=== PATIENT | male | born 1955 | race Caucasian/White ===

== ENCOUNTER 2020-08-12 13:57 | Inpatient (IN) | payer MEDICARE, OTHER ==
[~2020-08-12] VITALS: Ht 172.7 cm; Wt 85.7 kg
--- NOTE | 2020-08-12 14:16 | NUR ---
SHARON FROM [facility]. SENT BY DR. HANDLEY. TO ER BED 6. AAOX4. NO TIN RESP DISTRESS. BROUGHT IN FOR NECK PAIN THAT HAS BEEN GOING ON THE THE PAST 2 DAYS. PER PT, HE WAKE UP WITH HIS NECK HURTING WHICH IS AGGREVATED BY TILTING HIS HEAD. ROM ARE INTACT. AWAITING MD FOR EVAL.
--- NOTE | 2020-08-12 14:19 | NUR ---
AT BEDSIDE FOR EVAL.
[2020-08-12] MEDS ORDERED: MORPHINE SULFATE INJ 4 MG/ML DISP.SYRIN ONE (14:27)
[2020-08-12] MEDS ORDERED: ONDANSETRON HCL/PF 4 MG/2 ML VIAL ONE (14:27)
[2020-08-12] MEDS ORDERED: MORPHINE SULFATE INJ 2 MG/ML DISP.SYRIN IV ONE (14:30)
[2020-08-12] MEDS ORDERED: ONDANSETRON HCL/PF 4 MG/2 ML VIAL IVP ONE (14:30)
[2020-08-12 14:52] LABS: BASOPHILS # (AUTO) 0.1 /CMM (0.0-0.2); BASOPHILS % (AUTO) 1.1 % (0.0-2.0); HEMATOCRIT 43 % (39-51); LYMPHOCYTES % (AUTO) 20.3 % (20.0-44.0); MEAN CORPUSCULAR HGB CONC 33 g/dl (31.0-36.0); MEAN CORPUSCULAR VOLUME 98 fL (80-96); MONOCYTES # (AUTO) 0.4 /CMM (0.1-1.30); MONOCYTES % (AUTO) 8.6 % (2.0-12.0); NEUTROPHILS # (AUTO) 3.4 /CMM (1.8-8.9); PLATELET COUNT (AUTO) 168 /CMM (150-450); RED BLOOD CELL COUNT(AUTO) 4.32 MIL/uL (4.5-6.0)
--- NOTE | 2020-08-12 14:52 | NUR ---
Judy hull in [facility] - 08/12/20 at 1452 by WILLIAM ROOM ASSIGNMENT: [id number]
[2020-08-12 14:54] LABS: POTASSIUM 4.1 mmol/L (3.5-5.1)
[2020-08-12 15:08] LABS: ALBUMIN 3.5 g/dL (3.4-5.0); BILIRUBIN,DIRECT 0.2 mg/dL (0.0-0.2); BILIRUBIN,TOTAL 0.8 mg/dL (0.2-1.0); TOTAL PROTEIN, SERUM 7.6 g/dL (6.4-8.2)
--- NOTE | 2020-08-12 15:19 | NUR ---
PAGED DR HANDLEY
[2020-08-12] MEDS ORDERED: ACID1TAB12 PO (16:14)
[2020-08-12] MEDS ORDERED: SENN-18 PO (16:14)
[2020-08-12] MEDS ORDERED: PANT40TA2 PO (16:14)
[2020-08-12] MEDS ORDERED: LEVO50TA PO (16:14)
[2020-08-12] MEDS ORDERED: MELA10TA3 PO (16:14)
[2020-08-12] MEDS ORDERED: ACET-907 PO (16:14)
[2020-08-12] MEDS ORDERED: FURO-145 PO (16:14)
[2020-08-12] MEDS ORDERED: POTA10CA43 PO (16:14)
[2020-08-12] MEDS ORDERED: CLON1TAB PO (16:14)
[2020-08-12] MEDS ORDERED: NITR0.4T48 SL (16:14)
[2020-08-12] MEDS ORDERED: FLUT16SP16 NS (16:14)
[2020-08-12] MEDS ORDERED: EREN70AU SQ (16:14)
[2020-08-12] MEDS ORDERED: HYPR10GE3 OP (16:14)
[2020-08-12] MEDS ORDERED: BACL10TA PO (16:14)
[2020-08-12] MEDS ORDERED: BUSP10TA35 PO (16:14)
[2020-08-12] MEDS ORDERED: LAMO25TA5 PO (16:14)
[2020-08-12] MEDS ORDERED: SUMA50TA PO (16:14)
[2020-08-12] MEDS ORDERED: TAMS-12 PO (16:14)
[2020-08-12] MEDS ORDERED: ATOR20TA PO (16:14)
[2020-08-12] MEDS ORDERED: FINA5TAB4 PO (16:14)
[2020-08-12 16:19] LABS: BILIRUBIN,URINE Negative (NEGATIVE); BLOOD, URINE Trace-intact Ery/uL (NEGATIVE); COLOR,URINE Yellow (YELLOW); LEUKOCYTE ESTERASE ,URINE Negative (NEGATIVE); NITRITE, URINE Negative (NEGATIVE); PROTEIN,URINE Negative (NEGATIVE); UGLUCOSE Negative (NEGATIVE)
--- NOTE | 2020-08-12 16:30 | NUR ---
REPORT GIVEN TO SARAH MAURER FOR LUDWIG
--- NOTE | 2020-08-12 16:57 | NUR ---
PT BEING TRANSPORTED TO UNIT ON RNOVI WITH EMT AND UNIT BRAND MANAGER AT BEDSIDE. PT IS IN STABLE ON CONDITION FOR TRANSPORT.
[2020-08-12 17:00] LABS: WBC,URINE 0-2 /HPF (0-3)
--- NOTE | 2020-08-12 17:00 | NUR ---
MS RN ADMITTING NOTES PT TRANSPORTED TO UNIT VIA GURNEY AT THIS TIME. REPORT RECEIVED FROM MAURO CAPUTO RN. PT AOX4. PT ABLE TO MAKE NEEDS KNOWN. NO SOB NOTED, NO S/S OF ANY ACUTE DISTRESS NOTED. NO C/O PAIN AT THIS TIME. RESPIRATIONS ARE EVEN AND UNLABORED WITH EQUAL RISE AND FALL IN CHEST. PT STABLE ON RA. IV ACCESS NOTED IN RIGHT HAND G#22, INTACT, PATENT AND FLUSHING WELL. ACTIVE BOWEL SOUNDS AUSCULTATED IN ALL FOUR QUADRANTS, ABD IS SOFT AND NON TENDER. LUNGS ARE CLEAR TO AUSCULTATION, SKIN IS WARM TO TOUCH. ASPIRATION AND SAFETY PRECAUTION IN PLACE AND MAINTAINED AT ALL TIMES. BED IN LOWEST LOCKED POSITION, HOB ELEVATED, SIDE RAILS UP X 2, CALL LIGHT WITHIN REACH. WILL CONTINUE TO MONITOR
[2020-08-12 17:02] LABS: BACTERIA,URINE Rare /HPF (None Seen); SQUAMOUS EPITHELIAL CELL,UR Rare /HPF (None Seen)
[2020-08-12 17:03] LABS: MUCUS,URINE Rare /LPF (None Seen)
--- NOTE | 2020-08-12 17:36 | NUR ---
RN NOTE RECEIVED AN ORDER FROM DR HANDLEY FOR CARDIAC DIET. NOTED AND CARRIED OUT.
--- NOTE | 2020-08-12 18:00 | NUR ---
PT's BELONGINGS ACCOUNTED FOR, SIGNED BY PT AND WITNESSED BY TWO NURSES. PICTURES TAKEN AND FILED IN CHART. WILL CONTINUE WITH PLAN OF CARE.
--- NOTE | 2020-08-12 18:24 | NUR ---
PT VTE SCORE >5, BLE 2+ EDMA, DR HANDLEY MADE AWARE TO ORDER CHEMICAL PROPHYLAXIS, NO NEW ORDERS AT THIS TIME. WILL CONTINUE WITH PLAN OF CARE
--- NOTE | 2020-08-12 18:56 | NUR ---
MS RN CLOSING NOTES PT AWAKE IN BED AT THIS. PT REMAINED STABLE THROUGHOUT SHIFT. PT KEPT CLEAN AND DRY. ALL CARE, NEEDS AND TREATMENT ADMINISTERED ANTICIPATED PER ORDER. SAFETY PRECAUTION IN PLACE AND MAINTAINED AT ALL TIMES. BED IN LOWEST LOCKED POSITION, HOB ELEVATED, SIDE RAILS UP X 2, CALL LIGHT WITHIN REACH.
--- NOTE | 2020-08-12 19:00 | NUR ---
MS RN OPENING NOTES: RECEIVED PATIENT IN BED, AWAKE, A/O X4. NO S/S OF DISTRESS NOTED. NO COMPLAIN OF PAIN. CALL LIGHT WITHIN REACH. BED IN HIGH POSITION-PATIENT REFUSED TO HAVE THE BED LOWERED TO THE LOWEST POSITION. BED IS LOCKED. REFUSED THE BED ALARM ON. WITH BLE EDEMA.
--- NOTE | 2020-08-12 19:21 | NUR ---
ENDORSED TP ELECTRONIC SPECIALIST NURSE FOR LUDWIG
[2020-08-12 20:00] VITALS: BP 134/75
[2020-08-12] MEDS ORDERED: ACETAMINOPHEN W/ CODEINE#3 1 EA TABLET PO PRN (20:30)
[2020-08-12] MEDS ORDERED: NITROGLYCERIN 0.4 MG/TAB BOTTLE SL PRN (20:30)
--- NOTE | 2020-08-12 20:48 | NUR ---
CALLED RADIOLOGY RE: FOR HELP IN PUTTING ORDERS FOR DUPPLER STUDY OF BLE ARTERIAL AND VENOUS.
[2020-08-12] MEDS ORDERED: ENOXAPARIN SODIUM 40 MG/0.4 ML DISP.SYRIN SQ SCH (21:00)
[2020-08-12] MEDS: ENOXAPARIN SODIUM 30 MG/0.3 ML DISP.SYRIN SQ SCH (21:30)
--- NOTE | 2020-08-12 22:17 | NUR ---
RECEIVED A CALL FROM [facility] RE: LOVENOX DOSING SUGGESTION SHOULD BE 40 MEQ, NEEDS AN ORDER. Addendum: 08/12/20 at 2244 by NICHOLAS ROMERO RN 40 MG, INSTEAD OF 40 MEQ
[2020-08-12] MEDS: ATORVASTATIN 10 MG TABLET PO SCH (22:24)
[2020-08-12] MEDS: SENNOSIDES 8.6 MG TABLET PO SCH (22:24)
[2020-08-12] MEDS: TAMSULOSIN 0.4 MG CAP.SR.24H PO SCH (22:24)
--- NOTE | 2020-08-12 22:42 | NUR ---
CALLED LINOT[employer] MECHANIC ISAC PETERSON RE: TO CHANGE THE ORDER FOR LOVENOX 30MG TO 40 MG DOSE. AND ORDER FOR ROBITUSSIN. LEFT MESSAGES.
--- NOTE | 2020-08-13 07:00 | NUR ---
MS RN CLOSING NOTES: PATIENT IN BED, ASLEEP. EASILY AROUSABLE. NO S/S OF DISTRESS NOTED. NO COMPLAIN OF PAIN AT THIS TIME. RESTED THROUGHOUT THE NIGHT. NO RESPONSE YET FROM INFORMATION CLERK [place] LE RE: TATOX AND PABLITOSIN, ENDORSED TO THE NEXT SHIFT RN.
--- NOTE | 2020-08-13 07:35 | NUR ---
Patient is alert and oriented x3. Pt is paraplegic, no skin issues. VS are stable and within baseline , afebrile. IV line intact and patent. Denies pain at this time. Patient on room air saturating above 95%.Safety precautions in place, call light within reach. will monitor
[2020-08-13 08:00] VITALS: BP 153/83
[2020-08-13] MEDS: FLUTICASONE PROPIONATE 16 GM BOTTLE NS SCH ×2 (08:30→17:31)
[2020-08-13] MEDS: FUROSEMIDE 20 MG TABLET PO SCH (08:30)
[2020-08-13] MEDS: busPIRone 5 MG TABLET PO SCH ×3 (08:30→17:31)
[2020-08-13] MEDS: clonazePAM 1 MG TABLET PO PRN (08:30)
[2020-08-13] MEDS: ACIDOPHILUS/BULGARICUS 1 EACH TAB.CHEW PO SCH (08:30)
[2020-08-13] MEDS: FINASTERIDE (5 MG) 5 MG TABLET PO SCH (08:30)
[2020-08-13] MEDS: BACLOFEN (10 MG) 10 MG TABLET PO SCH ×3 (08:31→17:31)
[2020-08-13] MEDS: LamoTRIgine 25 MG TABLET PO SCH (08:31)
[2020-08-13] MEDS: ENOXAPARIN SODIUM 30 MG/0.3 ML DISP.SYRIN SQ SCH (08:31)
[2020-08-13] MEDS: PANTOPRAZOLE 40 MG TABLET.DR PO SCH (08:31)
[2020-08-13] MEDS: POTASSIUM CHLORIDE 10 MEQ TABLET.SA PO SCH (08:31)
[2020-08-13] MEDS: LEVOTHYROXINE SODIUM 50 MCG TABLET PO SCH (08:31)
[2020-08-13] MEDS ORDERED: SUMATRIPTAN SUCCINATE 25 MG TABLET PO PRN (09:00)
[2020-08-13 11:15] LABS: PROSTATE SPECIFIC ANTIGEN SCR 1.4 ng/mL (0.00-4.00)
--- NOTE | 2020-08-13 12:00 | NUR ---
PAtient seen by [employer] consultant.
[2020-08-13] MEDS: OXYBUTYNIN CHLORIDE ER 5 MG TAB PO SCH (12:03)
--- NOTE | 2020-08-13 15:10 | NUR ---
Paged dr. Izaguirre for clarification of orders. No response
--- NOTE | 2020-08-13 18:28 | NUR ---
PER RN NAN, TRIED CONTACTING ORDERING PHYSICIAN IN [place] TO CLARIFICATION OF CT ORDER AND NURSING CARE PLAN. ORDERING PHYSICIAN HAS NOT REPLIED BACK. RN WILL TRY TO CONTACT PHYSICIAN AGAIN TOMORROW 08/14/2020. NEED CLARIFICATION REASON FOR CTA AND CT WITH CONTRAST DUE TO REASON BEING BLE EDEMA. WILL ATTEMPT EXAM TOMORROW IN THE AM 08/14/2020
--- NOTE | 2020-08-13 18:49 | NUR ---
Patient remains on room air ; no SOB, No distress noted. COvid test result still pending. All needs attended . Patient kept clean and comfortable at all times. SAfety precautions implemented , call light within reach. Will endorse to next shift for LUDWIG
--- NOTE | 2020-08-13 19:28 | NUR ---
MS RN OPENING NOTES PATIENT AWAKE IN BED. A/OX4. ON RA; NO S/S OF ACUTE RESPIRATORY DISTRESS; BREATHING IS EVEN AND UNLABORED. NO C/O PAIN. IV PRESENT ON RIGHT HAND, SIZE 22, INTACT & PATENT, HEP LOCKED. CONTACT/DROPLET PRECAUTIONS IN PLACE FOR R/O COVID 19, RESULTS PENDING. SAFETY MEASURES IN PLACE AND PATIENT'S NEEDS MET. BED LOCKED, HOB ELEVATED, SIDE RAILS X2, CALL LIGHT WITHIN REACH. WILL CONTINUE TO MONITOR.
[2020-08-13 20:48] VITALS: BP 133/74
[2020-08-13] MEDS: ATORVASTATIN 10 MG TABLET PO SCH (21:55)
[2020-08-13] MEDS: TAMSULOSIN 0.4 MG CAP.SR.24H PO SCH (21:55)
[2020-08-13] MEDS: SENNOSIDES 8.6 MG TABLET PO SCH (21:55)
[2020-08-14] MEDS: ACETAMINOPHEN W/ CODEINE#3 1 EA TABLET PO PRN (05:14)
--- NOTE | 2020-08-14 06:39 | NUR ---
MS RN CLOSING NOTES PATIENT SLEEPING, EASY TO AWAKEN. A/OX4. ON RA; NO S/S OF ACUTE RESPIRATORY DISTRESS; BREATHING IS EVEN AND UNLABORED. NO C/O PAIN. IV PRESENT ON RIGHT HAND, SIZE 22, INTACT & PATENT, HEP LOCKED. SAFETY MEASURES IN PLACE AND PATIENT'S NEEDS MET. BED LOCKED, HOB ELEVATED, SIDE RAILS X2, CALL LIGHT WITHIN REACH. WILL ENDORSE TO DAY SHIFT RN PLAN OF CARE.
[2020-08-14] MEDS: clonazePAM 1 MG TABLET PO PRN ×2 (07:36→14:13)
--- NOTE | 2020-08-14 07:48 | NUR ---
MS RN OPEN NOTES PATIENT IS A/O X 4. WITH NO SIGNS OF DISTRESS IN ROOM AIR. IV R HAND #22G SL. NO COMPLAIN OF PAIN AT THIS MOMENT. SAFETY MEASURES ARE BEING APPLIED, BED IS IN LOW AND LOCKED POSITION, SIDE RAILS UP X 2, CALL LIGHT WITHIN REACH. WILL CONTINUE TO MONITOR.
[2020-08-14 08:00] VITALS: BP 136/83
[2020-08-14] MEDS: ACIDOPHILUS/BULGARICUS 1 EACH TAB.CHEW PO SCH (08:14)
[2020-08-14] MEDS: LEVOTHYROXINE SODIUM 50 MCG TABLET PO SCH (08:14)
[2020-08-14] MEDS: busPIRone 5 MG TABLET PO SCH ×3 (08:14→16:49)
[2020-08-14] MEDS: PANTOPRAZOLE 40 MG TABLET.DR PO SCH (08:14)
[2020-08-14] MEDS: OXYBUTYNIN CHLORIDE ER 5 MG TAB PO SCH (08:14)
[2020-08-14] MEDS: BACLOFEN (10 MG) 10 MG TABLET PO SCH ×3 (08:14→16:49)
[2020-08-14] MEDS: POTASSIUM CHLORIDE 10 MEQ TABLET.SA PO SCH (08:14)
[2020-08-14] MEDS: FINASTERIDE (5 MG) 5 MG TABLET PO SCH (08:14)
[2020-08-14] MEDS: LamoTRIgine 25 MG TABLET PO SCH (08:15)
[2020-08-14] MEDS: ENOXAPARIN SODIUM 30 MG/0.3 ML DISP.SYRIN SQ SCH ×2 (08:16→10:31)
[2020-08-14] MEDS: FLUTICASONE PROPIONATE 16 GM BOTTLE NS SCH ×2 (08:17→16:48)
[2020-08-14] MEDS: FUROSEMIDE 20 MG TABLET PO SCH (08:23)
--- NOTE | 2020-08-14 10:21 | NUR ---
DR. HANDLEY GAVE ORDER OVER THE PHONE TO CANCEL CT WITH CONTRAST LE AND CTA LE. REPEATED ORDER, NOTED AND CARRIED OUT.
[2020-08-14 16:00] VITALS: BP 140/89
[2020-08-14 18:00] VITALS: BP 140/89
--- NOTE | 2020-08-14 18:55 | NUR ---
MS RN CLOSING NOTES PATIENT IS A/O X 4. WITH NO SIGNS OF DISTRESS IN ROOM AIR. IV R HAND #22G SL. NO COMPLAIN OF PAIN AT THIS MOMENT. PATIENT KEPT CLEAN AND DRY. ALL NEEDS, CARE, TREATMENT AND MEDICATIONS ADMINISTERED ANTICIPATED PER ORDER. SAFETY MEASURES ARE APPLIED BED IS IN LOW AND LOCKED POSITION, SIDE RAILS UP X 2. CALL LIGHT WITHIN REACH, WILL ENDORSE TO THE NEXT ROUTE DRIVER COIN MACHINES.
--- NOTE | 2020-08-14 19:05 | NUR ---
RN MS OPENING NOTES RECEIVED PATIENT IN BED AWAKE ALERT AND ORIENTED X4, RESPIRATIONS EVEN AND UNLABORED WITH EQUAL RISE AND FALL OF CHEST DENIES ANY PAIN OR DISCOMFORT, IV SITE TO RIGHT HAND #22 G INTACT AND PATENT, NO REDNESS, NO INFILTRATION PRESENT, URINAL AT BEDSIDE WITHIN REACH, FLUIDS OFFERED, ORIENTED TO STAFF AND CALL LIGHT AND KEPT WITHIN REACH, LOW BED AND LOCKED, ALL NEEDS ATTENDED WILL CONTINUE TO MONITOR AND ATTEND TO NEEDS, PCR STILL PENDING, PATIENT REFUSED SATURDAY SKIN ASSESSMENT PICTURES STATES " NO I DONT HAVE ANY WOUNDS".
[2020-08-14 20:00] VITALS: BP 141/89
[2020-08-14 20:17] VITALS: BP 141/89
[2020-08-14 20:29] VITALS: BP 141/89
[2020-08-14] MEDS: TAMSULOSIN 0.4 MG CAP.SR.24H PO SCH (21:04)
[2020-08-14] MEDS: SENNOSIDES 8.6 MG TABLET PO SCH ×2 (21:04→21:11)
[2020-08-14] MEDS: ATORVASTATIN 10 MG TABLET PO SCH (21:05)
--- NOTE | 2020-08-15 06:55 | NUR ---
RN MS CLOSING NOTES PATIENT IN BED AWAKE ALERT AND ORIENTED X4, RESPIRATIONS EVEN AND UNLABORED WITH EQUAL RISE AND FALL OF CHEST DENIES ANY PAIN OR DISCOMFORT, IV SITE TO RIGHT HAND #22 G INTACT AND PATENT, NO REDNESS, NO INFILTRATION PRESENT, URINAL AT BEDSIDE WITHIN REACH, FLUIDS OFFERED, CALL LIGHT KEPT WITHIN REACH, LOW BED AND LOCKED, ALL NEEDS ATTENDED WILL CONTINUE TO MONITOR AND ATTEND TO NEEDS, PCR STILL PENDING, PATIENT REFUSED SATURDAY SKIN ASSESSMENT PICTURES STATES " NO I DONT HAVE ANY WOUNDS". PERINEAL CARE PROVIDED, WILL ENDORSE TO NEXT SHIFT.
--- NOTE | 2020-08-15 07:03 | NUR ---
RN OPENING NOTES RECEIVED PT AWAKE IN BED AT THIS TIME. AOX4. NO SOB NOTED, NO S/S OF ANY ACUTE DISTRESS NOTED. NO C/O PAIN AT THIS TIME. RESPIRATIONS ARE EVEN AND UNLABORED WITH EQUAL RISE AND FALL IN CHEST. PT STABLE ON RA. IV ACCESS NOTED IN RIGHT HAND G#22, INTACT, PATENT AND FLUSHING WELL. SAFETY PRECAUTION IN PLACE AND MAINTAINED AT ALL TIMES. BED IN LOWEST LOCKED POSITION, HOB ELEVATED, SIDE RAILS UP X 2, CALL LIGHT WITHIN REACH. WILL CONTINUE TO MONITOR
[2020-08-15 08:00] VITALS: BP 157/87
[2020-08-15] MEDS: clonazePAM 1 MG TABLET PO PRN (08:47)
--- NOTE | 2020-08-15 08:47 | NUR ---
PT C/O ANXIETY. VS WNL. PER PT REQUEST KLONOPIN 1MG PO BIDPRN FOR ANXIETY WAS ADMINISTERED AT THIS TIME PER ORDER. WILL CONTINUE TO MONITOR
[2020-08-15] MEDS: FINASTERIDE (5 MG) 5 MG TABLET PO SCH (09:01)
[2020-08-15] MEDS: ACIDOPHILUS/BULGARICUS 1 EACH TAB.CHEW PO SCH (09:01)
[2020-08-15] MEDS: OXYBUTYNIN CHLORIDE ER 5 MG TAB PO SCH (09:01)
[2020-08-15] MEDS: BACLOFEN (10 MG) 10 MG TABLET PO SCH ×3 (09:02→16:33)
[2020-08-15] MEDS: POTASSIUM CHLORIDE 10 MEQ TABLET.SA PO SCH (09:02)
[2020-08-15] MEDS: LEVOTHYROXINE SODIUM 50 MCG TABLET PO SCH (09:02)
[2020-08-15] MEDS: PANTOPRAZOLE 40 MG TABLET.DR PO SCH (09:02)
[2020-08-15] MEDS: busPIRone 5 MG TABLET PO SCH ×3 (09:02→16:33)
[2020-08-15] MEDS: FUROSEMIDE 20 MG TABLET PO SCH (09:02)
[2020-08-15] MEDS: LamoTRIgine 25 MG TABLET PO SCH (09:02)
[2020-08-15] MEDS: ENOXAPARIN SODIUM 30 MG/0.3 ML DISP.SYRIN SQ SCH (09:03)
[2020-08-15] MEDS: FLUTICASONE PROPIONATE 16 GM BOTTLE NS SCH ×2 (09:10→16:34)
--- NOTE | 2020-08-15 12:20 | NUR ---
PT TRANSFERRED TO [address] [place] [address] BY BED AT THIS TIME. PT IN STABLE CONDITION. BEDSIDE REPORT GIVEN SARAH BOYD. DR HANDLEY MADE AWARE.
--- NOTE | 2020-08-15 12:30 | NUR ---
RN MS NOTES PATIENT WAS TRANFERED FROM [facility] RECEIVED PATIENT AWAKE IN BED AOX4, HAVING LUNCH AT THIS TIME. PATIENT ON RA WITH NO SOB NOTED, NO S/S OF ACUTE DISTRESS, BREATHING EVEN AND UNLABORED. NO C/O PAIN AT THIS TIME. IV ACCESS TO RIGHT HAND #22G PATNET AND INTACT KEPT SL. BED IS AT LOWEST POSITION AND LOCKED WITH HOB ELEVATED AND SIDE RAILS UP X 2, CALL LIGHT WITHIN REACH. ALL SAFETY PRECAUTION IN PLACE, WILL CONTINUE TO MONITOR PATIENT THROUGH SHIFT.
[2020-08-15 16:00] VITALS: BP 157/87
[2020-08-15] MEDS: ACETAMINOPHEN W/ CODEINE#3 1 EA TABLET PO PRN (16:32)
--- NOTE | 2020-08-15 18:21 | NUR ---
RN MS CLOSING NOTES PATIENT IN BED AWAKE A/OX4, ON RA WITH EVEN AND UNLABORED BREATHING. NO C/O OF SOB. NO ACUTE RESPIRATORY DISTRESS NOTED. IV SITE TO RIGHT HAND #22 G INTACT AND PATENT, URINAL AT BEDSIDE WITHIN REACH, BED IS AT LOWEST POSITION AND LOCKED WITH SIDE RAILS UPX 2 AND CALL LIGHT WITH IN REACH WILL ENDORSE TO ONCOMING SHIFT.
--- NOTE | 2020-08-15 19:40 | NUR ---
MS RN NOTE: PATIENT RESTING IN BED, NO ACUTE DISTRESS NOTED. BREATHING EVEN AND UNLABORED, NO SOB NOTED. IV TO RIGHT HAND IN PLACE. PATIENT REQUEST TO HAVE BED ELEVATED, INSTRUCTED ON SAFETY OF HAVING BED LOWERED, BUT INSIST ON HAVING BED ELEVATED, SIDE RAILS UP. BED LOCKED, CALL LIGHT IN REACH. WILL CONTINUE TO MONITOR.
[2020-08-15 20:00] VITALS: BP 138/79
[2020-08-15] MEDS: ATORVASTATIN 10 MG TABLET PO SCH (21:16)
[2020-08-15] MEDS: TAMSULOSIN 0.4 MG CAP.SR.24H PO SCH (21:16)
[2020-08-15] MEDS: SENNOSIDES 8.6 MG TABLET PO SCH (21:16)
--- NOTE | 2020-08-16 02:30 | NUR ---
MS RN NOTE: REPORT GIVEN TO JEY FOR CONTINUATION OF CARE. WILL CONTINUE TO MONITOR.
--- NOTE | 2020-08-16 03:55 | NUR ---
0230 report recieved from sachi. will cont to monitor.
--- NOTE | 2020-08-16 06:52 | NUR ---
MS RN NOTE CLOSING: PATIENT IN BED, NO ACUTE DISTRESS NOTED. BREATHING EVEN AND UNLABORED, NO SOB NOTED. PATIENT PULLED UP UPON HIS REQUEST BY THE SHOULDERS. IV TO RIGHT HAND IN PLACE. PATIENT REQUEST TO HAVE BED ELEVATED, INSTRUCTED ON SAFETY OF HAVING BED LOWERED, BUT INSIST ON HAVING BED ELEVATED STATES " I WANT IT TO BE THIS HIGH IM NOT GOING TO FALL OUT OF BED DONT WORRY., SIDE RAILS UP X3. BED LOCKED, CALL LIGHT IN REACH. WILL ENDORSE TO ONCOMING SHIFT.
--- NOTE | 2020-08-16 07:15 | NUR ---
ms rn received on bed, awake,alert,oriented x4,not in any form of distress,respirations even and unlabored,no sob noted,lungs are diminished,abdomen soft,positive bowel sounds, denies pain at this time,all needs attended.
--- NOTE | 2020-08-16 08:30 | NUR ---
ms rn breakfast served by brenda, patient is mean to brenda Castro, refused to take meds at this time, was told to take it later,he will call if he is ready, patient is something noncompliant, wants to do things on his own will, will monitor patient.
--- NOTE | 2020-08-16 10:00 | NUR ---
ms rn patient wants to have meds now,tolerated well.
[2020-08-16] MEDS: FUROSEMIDE 20 MG TABLET PO SCH (10:05)
[2020-08-16] MEDS: ACIDOPHILUS/BULGARICUS 1 EACH TAB.CHEW PO SCH (10:05)
[2020-08-16] MEDS: FLUTICASONE PROPIONATE 16 GM BOTTLE NS SCH ×2 (10:05→17:00)
[2020-08-16] MEDS: BACLOFEN (10 MG) 10 MG TABLET PO SCH ×4 (10:06→17:11)
[2020-08-16] MEDS: LEVOTHYROXINE SODIUM 50 MCG TABLET PO SCH (10:06)
[2020-08-16] MEDS: PANTOPRAZOLE 40 MG TABLET.DR PO SCH (10:06)
[2020-08-16] MEDS: OXYBUTYNIN CHLORIDE ER 5 MG TAB PO SCH (10:06)
[2020-08-16] MEDS: FINASTERIDE (5 MG) 5 MG TABLET PO SCH (10:07)
[2020-08-16] MEDS: busPIRone 5 MG TABLET PO SCH ×4 (10:07→17:12)
[2020-08-16] MEDS: LamoTRIgine 25 MG TABLET PO SCH ×3 (10:08→17:12)
[2020-08-16] MEDS: POTASSIUM CHLORIDE 10 MEQ TABLET.SA PO SCH (10:11)
[2020-08-16] MEDS: ENOXAPARIN SODIUM 30 MG/0.3 ML DISP.SYRIN SQ SCH (10:17)
--- NOTE | 2020-08-16 12:00 | NUR ---
ms rn still waiting for dr. callejas to see pt.
--- NOTE | 2020-08-16 14:00 | NUR ---
ms corporate attorney said ok to be discharge at 1600
--- NOTE | 2020-08-16 16:00 | NUR ---
ms rn patient ready to be discharge, refusignt o take pictures on his bottucks and other area, report given to Ernesto rodriguez, going to station [facility].
[2020-08-16] MEDS ORDERED: LamoTRIgine 25 MG TABLET PO SCH (17:00)
--- NOTE | 2020-08-16 17:00 | NUR ---
ms rn patient refused meds for 1700, went to snf,all needs attended, no distress noted.
[2020-08-16] MEDS: clonazePAM 1 MG TABLET PO PRN (17:11)
[2020-08-16] MEDS: SENNOSIDES 8.6 MG TABLET PO SCH (17:22)
== END 2020-08-16 17:30 | DRG 552 ==
LOC: ER 14:00 → MEDSG2 16:36 → MED 08-15 12:17
PROVIDERS: ADMIT Internal Medicine; ATTEND Internal Medicine
DX: M48.02 Spinal stenosis, cervical region (principal); G82.22 Paraplegia, incomplete; G25.9 Extrapyramidal and movement disorder, unspecified; G40.909 Epilepsy, unspecified, not intractable, without status epilepticus; E03.9 Hypothyroidism, unspecified; K21.9 Gastro-esophageal reflux disease without esophagitis; R32 Unspecified urinary incontinence; Z95.0 Presence of cardiac pacemaker; E66.9 Obesity, unspecified; G89.29 Other chronic pain; I10 Essential (primary) hypertension; M50.30 Other cervical disc degeneration, unspecified cervical region; M75.42 Impingement syndrome of left shoulder; Z86.19 Personal history of other infectious and parasitic diseases; R53.1 Weakness; Z68.28 Body mass index [BMI] 28.0-28.9, adult
CPT/HCPCS: 36415; 71045-TC; 72125-TC; 80048-TC; 80076-TC; 80175; 81000-TC; 84153-TC; 84154-TC; 85025-TC; 87081-TC; G0378; J1650; J2270; J2405; U0003